=== PATIENT | male | born 1985 | race African-American/Black ===

== ENCOUNTER 2016-12-11 19:30 | Emergency (ER) | payer BC ==
[2016-12-11] MEDS ORDERED: ETOMIDATE 2 MG/ML 10 ML VIAL IVP STA (19:36)
[2016-12-11] MEDS ORDERED: DIPH,PERTUS(ACELL)TETVAC-LF 0.5 ML VIAL IM ONE (19:41)
[2016-12-11 19:47] LABS: Glucose,Whole Blood 157 mg/dL (75-99)
[2016-12-11] MEDS: PROPOFOL 500 MG in EMPTY BAG 1 BAG IV ONE ×2 (19:51→20:49)
[2016-12-11] MEDS ORDERED: EMPTY BAG 1 BAG with PROPOFOL 500 MG IV STA (19:51)
[2016-12-11 19:52] LABS: Basophils # (A) 0.1 k/uL (0-0.2); Basophils % (A) 1 %; CH 28.7; CHCM 34.1; Eosinophils # (A) 0.9 k/uL (0-0.7); Eosinophils % (A) 6 %; HDW 2.31; HGB 13.9 gm/dL (13.0-17.5); Luc # (Auto) 0.29; Luc % (Auto) 2; Lymphocytes % (A) 38 %; MCH 30.1 pg (25.0-35.0); MCHC 35.7 g/dL (31.0-37.0); MCV 84.3 fL (80.0-100.0); Mean Platelet Volume 7.3; Monocytes # (A) 0.5 k/uL (0-1.0); Monocytes % (A) 3 %; Neutrophils % (A) 51 %; RBC 4.62 m/uL (4.30-5.90); RDW 12.8 % (11.5-15.5); WBC 15.8 k/uL (3.8-10.6); WBC (Perox) 15.71
[2016-12-11 20:01] LABS: Polychromasia Present
[2016-12-11 20:04] LABS: Creatine Kinase 172 U/L (55-170)
--- NOTE | 2016-12-11 20:04 | XR ---
AP pelvis HISTORY: Trauma and pain Single frontal view of the pelvis submitted No comparisons Bone mineralization, joint spaces and alignment are maintained IMPRESSION: No fracture or dislocation.
--- NOTE | 2016-12-11 20:06 | XR ---
EXAMINATION TYPE: XR chest 1V portable DATE OF EXAM: 12/11/2016 COMPARISON: Chest x-ray 10/07/2015 HISTORY: Trauma and pain TECHNIQUE: Single frontal view of the chest is obtained. FINDINGS: Endotracheal tube is been placed in the interval and is approximately 9-10mm from the maye na. There is no pneumothorax or pleural effusion. Patient is rotated which may accentuate the appeara nce of the heart, the exam is expiratory. No displaced fracture is evident. IMPRESSION: No acute process. Endotracheal tube as described. Rotated exam, follow-up as indicated.
[2016-12-11 20:08] LABS: ALT 28 U/L (21-72); AST 30 U/L (17-59); Alcohol <10 mg/dL; Alkaline Phosphatase 55 U/L (38-126); Amylase 69 U/L (30-110); Anion Gap 12 mmol/L; Blood Urea Nitrogen 11 mg/dL (9-20); Calcium 7.7 mg/dL (8.4-10.2); Carbon Dioxide 21 mmol/L (22-30); Chloride 104 mmol/L (98-107); Glucose 142 mg/dL (74-99); Non-African American GFR(MDRD) >60 (>60 ml/min/1.73 sqM); Sodium 137 mmol/L (137-145); Total Bilirubin 0.6 mg/dL (0.2-1.3); Total Protein 6.1 g/dL (6.3-8.2)
[2016-12-11 20:11] LABS: INR 1.2 (<1.1)
[2016-12-11 20:12] LABS: Partial Thromboplastin Time 21.3 sec (22.0-30.0); Prothrombin Time 12.1 sec (9.0-12.0)
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
[2016-12-11 20:17] LABS: Creatine Kinase MB 1.2 ng/mL (0.0-2.4); Troponin I <0.012 ng/mL (0.000-0.034)
[2016-12-11 20:21] VITALS: TEMP 94.3
[2016-12-11] MEDS ORDERED: SUCCINYLCHOLINE CHLORIDE VIAL 200 MG/10 ML VIAL IV STA (20:23)
[2016-12-11] MEDS ORDERED: ceFAZolin 2 GM in SODIUM CHLORIDE 0.9% 100 ML IVPB STA (20:31)
[2016-12-11 20:35] LABS: ABG PCO2 54 mmHg (35-45); ABG PH 7.23 (7.35-7.45)
[2016-12-11 20:36] LABS: ABG Base Excess -5.7 mmol/L; ABG HCO3 22 mmol/L (21-25); ABG PO2 >420 mmHg (83-108)
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
[2016-12-11] MEDS ORDERED: PROPOFOL 500 MG in EMPTY BAG 1 BAG IV ONE (20:50)
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
== END 2016-12-11 21:21 | disposition short-term general hospital (02) ==
LOC: EDBD → EC 19:30
DX: S02.40CA Maxillary fracture, right side, initial encounter for closed fracture (principal); S06.5X9A Traumatic subdural hemorrhage with loss of consciousness of unspecified duration, initial encounter; S02.19XA Other fracture of base of skull, initial encounter for closed fracture; S06.6X9A Traumatic subarachnoid hemorrhage with loss of consciousness of unspecified duration, initial encounter; S01.81XA Laceration without foreign body of other part of head, initial encounter; S80.212A Abrasion, left knee, initial encounter; S70.312A Abrasion, left thigh, initial encounter; J96.90 Respiratory failure, unspecified, unspecified whether with hypoxia or hypercapnia; R40.2432 Glasgow coma scale score 3-8, at arrival to emergency department; Z79.899 Other long term (current) drug therapy; Z99.11 Dependence on respirator [ventilator] status; Z23 Encounter for immunization; V91.23XA Fall due to collision between other powered watercraft and other watercraft or other object, initial encounter; V90.89XA Drowning and submersion due to other accident to unspecified watercraft, initial encounter; Y93.17 Activity, water skiing and wake boarding; Y92.89 Other specified places as the place of occurrence of the external cause
CPT/HCPCS: 36415; 36600; 94002; 86900; 86901; 80053; 82150; 82550; 82553; 82805; 83605; 83690; 84484; 85025; 85610; 85730; 86850; 80320; 71010; 72170; 72125; 70486; 70450; 71260; 74177; 90715; 99291; 99292 ×2; 31500; 96365; 96368; 96375 ×2; 90471; J0330; J0690; Q9967; J2704